=== PATIENT | male | born 1965 | race Caucasian/White ===

== ENCOUNTER 2024-10-24 07:41 | Day surgery (SDC) | payer OTHER, SELFPAY ==
[2024-10-24] VITALS (10 sets, daily range): BP systolic 108–147; BP diastolic 64–81; PULSE 70–90; RESP 16–18; TEMP 36.6–37.1; O2SAT 92–99; BMI 49.4
[2024-10-24] MEDS: LACTATED RINGERS 1000 ML 1,000 ML 100 ML IV (07:50)
[2024-10-24] MEDS: SODIUM CHLORIDE 0.9 % (FLUSH) 10 ML SYRINGE IVF (08:33)
--- NOTE | 2024-10-24 08:38 | P.ANES_ITS ---
Anesthesia Charges Start Date/Time Anesthesia Start Date: 10/24/24 Anesthesia Start Time: 08:41 Stop Date/Time Anesthesia Stop Date: 10/24/24 Anesthesia Stop Time: 10:45 Coding CPT Codes CPT Codes: ANESTH SURG UPPER ABDOMEN - 94515 ([id number]) P3 - PATIENT W/SEVERE SYS DISEASE, QK - BLOCK AND CASE MAKER 2-4 CNCRNT ANES PROC, QX - OPTICAL SCIENTIST SVC W/ MD MED DIRECTION
--- NOTE | 2024-10-24 08:38 | W.ANESCHARGE ---
Anesthesia Charges Start Date/Time Anesthesia Start Date: 10/24/24 Anesthesia Start Time: 08:41 Stop Date/Time Anesthesia Stop Date: 10/24/24 Anesthesia Stop Time: 10:45 Coding CPT Codes CPT Codes: ANESTH SURG UPPER ABDOMEN - 84281 ([id number]) P3 - PATIENT W/SEVERE SYS DISEASE, QK - IT INFRASTRUCTURE PROJECT MANAGER 2-4 CNCRNT ANES PROC, QX - CASINO RUNNER SVC W/ MD MED DIRECTION
[2024-10-24] MEDS: CEFAZOLIN 1 GM inj IVP (08:53)
--- NOTE | 2024-10-24 09:15 | SUR.OPER ---
PATIENT QUESTIONS ANSWERED SATISFACTORILY PREOPERATIVEL BY SINDHU WILLOUGHBY. PATIENT BROUGHT TO OR #1 PER CART. Patient positioned supine on OR #1 bed. The perioperative team supported arms bilaterally on arm boards. Final approval of positioning by surgeon.
[2024-10-24] MEDS: BUPIVACAINE 0.5% 30 ML 20 ML INJECTION (10:20)
--- NOTE | 2024-10-24 10:35 | W.PM.H&PU ---
History & Physical Update History & Physical Update H&P Reviewed and patient assessed: No changes noted
--- NOTE | 2024-10-24 10:35 | PM.GSPRC ---
Operative Note Date of procedure: 10/24/24 Pre-op diagnosis: Chronic cholecystitis Post-op diagnosis: Same Type of Procedure: Laparoscopic cholecystectomy Indications: Patient is a 59-year-old male with clinical workup and symptoms suspicious for chronic cholecystitis. Different treatment options were discussed at length with the patient, please see consultation note for full discussion. Risks and benefits of operative intervention were discussed at length with the patient. Risks included but was not limited to: Bleeding, infection, risk of damage to surrounding structures, possible need for additional procedures, possible need to convert to an open operation and postoperative complications such as pneumonia, pulmonary emboli or MN. All questions and concerns were addressed with the patient agreeing to proceed. Procedure Description: After discussing the risks and benefits of the procedure, the patient signed informed consent.? The operative site was marked and the patient was brought to the operating room and placed on the operating table in supine position.? Care was taken to pad the patient's pressure points.?? The patient was then intubated by anesthesia.?? The operative site was then prepped and draped in the usual sterile fashion.? A time-out was then performed. Entrance to the abdomen was gained via a 5 mm Visiport in the left upper quadrant. The abdomen was insufflated and briefly surveyed for signs of injury. There was none. An 11 mm supra umbilical port was placed as well as 2 working ports along the right costal margin. Patient was then placed in reverse Trendelenburg position with the right side up. The gallbladder was encased in omentum. This was carefully dissected off of the gallbladder. A small arterial blood vessel on the omentum was clipped with a 5 mm clip for hemostasis. The fundus was grasped and retracted cephalad. The infundibulum was grasped. A combination of hook cautery and blunt dissection was used to carefully dissect out the cystic duct and artery until they could clearly be seen entering the gallbladder without any intervening structures. The gallbladder was dissected off the cystic plate to achieve the critical view. Once this was achieved the cystic artery was clipped with 2 clips proximally and 1 clip distally and transected with the laparoscopc scissors. The cystic duct was further dissected circumferentially to allow 2 clips applied proximally and 1 clip distally. The cystic duct was then transected with laparoscopic scissors. The gallbladder was then taken off of the liver bed. A small amount of bile was spilled during this dissection. No spillage of stones. A small tear in the liver capsule occurred during retraction. Hemostasis was assured with cautery to the area. The gallbladder bed was then surveyed with hemostasis being excellent. The gallbladder was removed from the abdomen using an Endo-Catch bag. The supraumbilical port fascia was closed with 0 Vicryl via the Migue-John. The ports were then removed under direct vision. The skin was closed with absorbable subcuticular suture. Instrument sponge and needle counts were correct at the end of the case. The patient was then woken and transferred to the PACU in stable condition. Findings: Inflamed gallbladder, cholelithiasis Anesthesia: GETA Surgeon: Colleen Wade MD Estimated blood loss (mL): 15 Specimen: Gallbladder Condition: stable Disposition: PACU
--- NOTE | 2024-10-24 10:43 | P.ANES_ITS ---
Anesthesia Charges Start Date/Time Anesthesia Start Date: 10/24/24 Anesthesia Start Time: 08:41 Stop Date/Time Anesthesia Stop Date: 10/24/24 Anesthesia Stop Time: 10:45 Coding CPT Codes CPT Codes: ANESTH SURG UPPER ABDOMEN - 22021 ([id number]) P3 - PATIENT W/SEVERE SYS DISEASE, QK - WARDROBE CONSULTANT 2-4 CNCRNT ANES PROC, QX - CLAIMS ASSOCIATE SVC W/ MD MED DIRECTION
--- NOTE | 2024-10-24 10:43 | W.ANESCHARGE ---
Anesthesia Charges Start Date/Time Anesthesia Start Date: 10/24/24 Anesthesia Start Time: 08:41 Stop Date/Time Anesthesia Stop Date: 10/24/24 Anesthesia Stop Time: 10:45 Coding CPT Codes CPT Codes: ANESTH SURG UPPER ABDOMEN - 44802 ([id number]) P3 - PATIENT W/SEVERE SYS DISEASE, QK - CHANGE HOUSE ATTENDANT 2-4 CNCRNT ANES PROC, QX - FIELD CANE SCALER SVC W/ MD MED DIRECTION
[2024-10-24] MEDS: HYDROCODONE-ACETAMIN 5-325 MG 1 TAB PO (11:25)
== END 2024-10-24 12:01 | disposition home or self-care (01) ==
PROVIDERS: Visit Provider Surgery
PROC: 0FT44ZZ Resection of Gallbladder, Percutaneous Endoscopic Approach (ICD-10-PCS; CPT 47562; principal; 2024-10-24 09:15)
DX: K80.10 Calculus of gallbladder with chronic cholecystitis without obstruction (principal); E11.9 Type 2 diabetes mellitus without complications; Z79.85 Long-term (current) use of injectable non-insulin antidiabetic drugs; E66.01 Morbid (severe) obesity due to excess calories; Z68.42 Body mass index [BMI] 45.0-49.9, adult; I10 Essential (primary) hypertension
CPT/HCPCS: 47562; 00790; 82962; 88304; A9270; J0330; J0665; J0690; J1100; J1630; J2405; J2704; J3010; J3490; J7120